=== PATIENT | female | born 1995 | race Caucasian/White ===

== ENCOUNTER 2016-11-04 17:11 | Inpatient (IN) | payer SELFPAY ==
[~2016-11-04] VITALS: Ht 157.5 cm; Wt 55.4 kg
[2016-11-04 19:45] VITALS: BP 104/65; PULSE 68; RESP 16; TEMP 98.2; O2SAT 97
[2016-11-04] MEDS ORDERED: ACETAMINOPHEN 325 MG TAB PO PRN (20:30)
[2016-11-04] MEDS ORDERED: LORazepam 2 MG/ML VIAL IM PRN (20:30)
[2016-11-04] MEDS ORDERED: MAGNESIUM HYDROXIDE SUSP 30 ML CUP PO PRN (20:30)
[2016-11-04] MEDS ORDERED: LORazepam 1 MG TAB PO PRN (20:30)
[2016-11-04] MEDS ORDERED: ALUMINUM/MAGNESIUM/SIMETH 30 ML CUP PO PRN (20:30)
[2016-11-04] MEDS ORDERED: diphenhydrAMINE HCL 50 MG/ML VIAL IM PRN (20:30)
[2016-11-04] MEDS: hydrOXYzine HCL 50 MG TAB PO PRN (20:48)
[2016-11-04] MEDS: REMOVE OLD NICOTINE PATCH T-DERMAL SCH (20:51)
[2016-11-04] MEDS: diphenhydrAMINE HCL 50 MG CAP PO PRN (22:13)
[2016-11-05 05:59] VITALS: BP_SYST 166; BP_SYST 93; BP_DIAS 59; BP_DIAS 87; PULSE 63; PULSE 82; RESP 16; RESP 18; TEMP 97.5; TEMP 98; O2SAT 100; O2SAT 96
[2016-11-05] MEDS: hydrOXYzine HCL 50 MG TAB PO PRN ×2 (06:32→14:01)
[2016-11-05 07:33] LABS: ANION GAP 9 MEQ/L (5-15); BICARBONATE 25.7 MEQ/L (21.0-32.0); BLOOD UREA NITROGEN 18 MG/DL (7-18); CHLORIDE 105 MEQ/L (98-107); GLOMERULAR FILTRATION RATE 107 ML/MIN (>89); POTASSIUM 4.2 MEQ/L (3.5-5.1); SODIUM (NA) 140 MEQ/L (136-145)
[2016-11-05 07:36] LABS: LDL CHOLESTEROL 91 MG/DL (0-99)
[2016-11-05] MEDS: NICOTINE 21 MG/24 HR PATCH T-DERMAL SCH (09:00)
[2016-11-05] MEDS: diphenhydrAMINE HCL 50 MG CAP PO PRN (09:15)
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
--- NOTE | 2016-11-05 14:02 | PD.CONS ---
Provisional Diagnosis Admission Date Nov 04, 2016 at 17:11 [place] I. Other psychotic disorder F 28 History of Present Illness Service Psychiatry Consult Requested By Primary Care Physician Unknown HPI Patient is a 21-year-old white female admitted to Dr. Diallo service under the [employer] act. Dr. Diallo h and p reviewed and agreed with. Patient seen by me in her room with nurse Nori present throughout session patient continues markedly vigilant paranoid guarded depressed. Vague suicidal ideation. Dr. Diallo has signed first opinion petition supporting Carpenter act. I agree. Patient meets criteria for involuntary psychiatric hospitalization under the Carpenter act. Thus I will cosign second opinion petition supporting Carpenter act Past Family Social History Coded Allergies: Dust (Unverified Allergy, Unknown, 11/05/16) Molds and Smuts (Unverified Allergy, Unknown, 11/05/16) Current Medications Medications (Trade) Dose Ordered Sig/Elaine Route Start Time Stop Time Status Last Admin (Atarax) 50 mg Q6H PRN PO 11/04/16 20:30 11/05/16 06:32 (Benadryl) 50 mg Q6H PRN PO 11/04/16 20:30 11/05/16 09:15 (Benadryl Inj) 50 mg Q6H PRN IM 11/04/16 20:30 (Tylenol) 650 mg Q4H PRN PO 11/04/16 20:30 (Milk Of Magnesia Liq) 30 ml DAILY PRN PO 11/04/16 20:30 (Mag-Al Plus Susp Liq) 30 ml Q6H PRN PO 11/04/16 20:30 (Habitrol 21 Mg Patch.24 Hr) 1 patch DAILY T-DERMAL 11/05/16 09:00 Miscellaneous Information 1 HS T-DERMAL 11/04/16 21:00 (risperDAL M-TAB) 0.5 mg Q12HR PO 11/05/16 21:00 Physical Exam Vital Signs Vital Signs Date Time Temp Pulse Resp B/P Pulse Ox O2 Delivery O2 Flow Rate FiO2 11/05/16 05:59 98.0 63 16 93/59 96 Mental Status Examination Speech: Hesitant, Slow Orientation: Person, Place Memory: Unremarkable Thought Process: Logical Thought Content: Unremarkable, Paranoid (mildly) Hallucination Type: None (denies that times appears to be responding to internal stimuli) Attention and Concentration: Easily Distracted Suicidal Ideation: No (though somewhat vague) Previous Suicide Attempts: No Homicidal Ideation: No Previous Homicide Attempts: No Insight: Poor Judgement: Poor Affect: Other (decreased range and intensity) Mood: Sad Motor Activity: Normal gait Assessment & Plan Problem List: (1) Other psychotic disorder not due to a substance or known physiological condition ICD Code: F28 Assessment & Plan Estimated LOS: days Swapnil Reeves MD Nov 05, 2016 14:02
[2016-11-05 16:14] LABS: HEMOGLOBIN A1a 1.1 %; HEMOGLOBIN A1b 0.8 %; HEMOGLOBIN Ao 86.7 %; HEMOGLOBIN F 0.9 %; HEMOGLOBIN LA1C 1.8 %; HEMOGLOBIN P3 3.4 %
[2016-11-05 19:46] VITALS: BP 101/61; PULSE 76; RESP 16; TEMP 98.7
[2016-11-05] MEDS: REMOVE OLD NICOTINE PATCH T-DERMAL SCH (21:00)
[2016-11-06 06:00] VITALS: BP 95/60; PULSE 66; RESP 16; TEMP 98.5
[2016-11-06] MEDS: NICOTINE 21 MG/24 HR PATCH T-DERMAL SCH (08:20)
--- NOTE | 2016-11-06 11:17 | HHI.PYPN ---
Subjective Remarks Patient seen and examined with counselor. Chart reviewed. Case discussed with nursing staff who reports patient is medication compliant but discharge focused. On my examination today, the patient remains oddly related and internally stimulated. She says that she feels annoyed by the other patients on the unit. She says that her sleep is disturbed. She feels quite anxious and tense and says that she has been on Zoloft for this indication in the past. She denies side effects from current medications. No SI or HI voiced. Counselor informs me that the patient was apparently quite fearful of accept towels to bathe from one of the techs, insisting for some reason that the counselor take them from the tech and hand them to the patient instead. Review of Systems ROS Limitations: Psychotic, Poor Historian Other Says that her knee is tapping up and down. No other physical complaints today. Objective Alert: Yes [place]: Person (O x 3) Mood: Anxious Affect: Flat Memory Intact: Comment (Not formally assessed) Hallucinations: Other (Remains internally preoccupied) Delusions: Yes Delusion Type: Paranoid Suicidal: Ideation (No SI) Homicidal: Ideation (No HI) Insight/Judgement Unclear at present. Remarks Patient is indeed tapping her right leg in an anxious fashion. No other abnormal motor movements noted. Thought process tangential at times. Speech somewhat monotone. Labs Labs reviewed. No new labs. Vitals/IOs Vital Signs Date Time Temp Pulse Resp B/P Pulse Ox O2 Delivery O2 Flow Rate FiO2 11/06/16 06:00 98.5 66 16 95/60 11/05/16 05:59 96 Assessment & Plan Problem List: (1) Other psychotic disorder not due to a substance or known physiological condition Assessment & Plan: Rule out comorbid anxiety disorder ICD Code: F28 Assessment & Plan Add Zoloft per patient preference for anxiety. I will plan to titrate Risperdal to target psychosis but we'll continue current dose for now. Continue other medications and care as ordered. Justification for Cont. Inpt. Impairments in reality construction and social function. Risk for decompensation. Discharge Planning Pending psychiatric stabilization Request HC Surrog/Guard Advoc?: Yes Leonides Diallo MD Nov 06, 2016 11:17
[2016-11-06] MEDS: SERTRALINE HCL 50 MG TAB PO SCH (12:04)
[2016-11-06 18:02] VITALS: BP 101/55; PULSE 87; RESP 16; TEMP 98.4; O2SAT 98
[2016-11-06] MEDS: REMOVE OLD NICOTINE PATCH T-DERMAL SCH (20:26)
[2016-11-07 05:18] VITALS: BP 107/56; PULSE 80; RESP 18; TEMP 98.3; O2SAT 98
[2016-11-07] MEDS: SERTRALINE HCL 50 MG TAB PO SCH (08:41)
[2016-11-07] MEDS: NICOTINE 21 MG/24 HR PATCH T-DERMAL SCH (08:41)
--- NOTE | 2016-11-07 11:50 | HHI.PYPN ---
Subjective Remarks Patient seen and examined with counselor. Chart reviewed. Case discussed with nursing staff who reports patient is quite anxious and fearful without clear cause. For example, the patient is reportedly fearful of going into her room. On my examination today, she does indeed seem to enter her room was some trepidation although she cannot articulate why she doesn't like it there. She remains somewhat oddly related and appears a little internally preoccupied. She appears somewhat anxious. She denies any SI or HI. She is agreeable to remaining on the unit over the weekend to allow for some additional medication adjustments but request discharge after that. Denies side effects from medications. Review of Systems ROS Limitations: Poor Historian Other No physical complaints today Objective Alert: Yes [place]: Person, Place (At least) Mood: Anxious Affect: Blunted Memory Intact: Comment (Not formally assessed) Hallucinations: Other (Internally preoccupied) Delusions: Yes Delusion Type: Paranoid Suicidal: Ideation (Denies SI) Homicidal: Ideation (Denies HI) Insight/Judgement Perhaps improving somewhat Remarks No motoric abnormalities noted. Labs Labs reviewed. No new labs. Vitals/IOs Vital Signs Date Time Temp Pulse Resp B/P Pulse Ox O2 Delivery O2 Flow Rate FiO2 11/07/16 05:18 98.3 80 18 107/56 98 Assessment & Plan Problem List: (1) Other psychotic disorder not due to a substance or known physiological condition ICD Code: F28 Assessment & Plan Titrate Risperdal to target psychosis. Continue Zoloft as ordered. Continue other medications and care as ordered. Justification for Cont. Inpt. Risk for decompensation pending psychiatric stabilization. Discharge Planning Monitor over the weekend. Possible discharge after that if the patient is attending to her ADLs and has had some symptomatic improvement in the meantime. Request HC Surrog/Guard Advoc?: Yes Leonides Diallo MD Nov 07, 2016 11:50
[2016-11-07 18:31] VITALS: BP 102/57; PULSE 76; RESP 16; TEMP 98.2; O2SAT 99
[2016-11-07] MEDS: diphenhydrAMINE HCL 50 MG CAP PO PRN (20:54)
[2016-11-08 05:22] VITALS: BP 102/66; PULSE 66; RESP 18; TEMP 98.1; O2SAT 98
[2016-11-08] MEDS: SERTRALINE HCL 50 MG TAB PO SCH (08:20)
[2016-11-08] MEDS: hydrOXYzine HCL 50 MG TAB PO PRN ×2 (11:53→20:34)
--- NOTE | 2016-11-08 16:49 | HHI.PYPN ---
Subjective Remarks Patient was seen and case discussed with nursing. Patient is pleasant and cooperative with exam. She is very guarded and shy. Visibly anxious throughout the interview. Patient is vague and cannot provide details for the reason for her admission. Patient says she solved it with her current doctor. She is compliant with her medications. Denies depressed mood. Denies suicidal ideations thought or plan Objective Alert: Yes [place]: Person, Place (At least) Mood: Anxious Affect: Blunted Memory Intact: Comment (Not formally assessed) Hallucinations: Other (Internally preoccupied) Delusions: Yes Delusion Type: Paranoid Suicidal: Ideation (Denies SI) Homicidal: Ideation (Denies HI) Insight/Judgement Poor Vitals/IOs Vital Signs Date Time Temp Pulse Resp B/P Pulse Ox O2 Delivery O2 Flow Rate FiO2 11/08/16 05:22 98.1 66 18 102/66 98 Intake and Output 11/07/16 11/07/16 11/08/16 08:00 16:00 00:00 Intake Total 480 ml Balance 480 ml Assessment & Plan Problem List: (1) Other psychotic disorder not due to a substance or known physiological condition ICD Code: F28 Assessment & Plan Continue current treatment plan Justification for Cont. Inpt. Patient will decompensate in a less restrictive setting Request HC Surrog/Guard Advoc?: Yes Maxi Leyva DO Nov 08, 2016 16:48
[2016-11-08 19:00] VITALS: BP 117/61; PULSE 75; RESP 18; TEMP 98.5; O2SAT 100
[2016-11-08] MEDS: diphenhydrAMINE HCL 50 MG CAP PO PRN (20:34)
[2016-11-09] MEDS: diphenhydrAMINE HCL 50 MG CAP PO PRN (02:26)
[2016-11-09 06:10] VITALS: BP 106/74; PULSE 76; RESP 18; TEMP 98.1; O2SAT 99
[2016-11-09] MEDS: SERTRALINE HCL 50 MG TAB PO SCH (08:31)
--- NOTE | 2016-11-09 16:29 | HHI.PYPN ---
Subjective Remarks Patient was seen and case discussed with nursing. Patient remains shy and guarded. Per nursing she is whispering to herself. When patient was asked about her behavior she becomes suspicious about why am asking her. Asking about discharge. Says she called her mother and they had a productive conversation. Affect remains blunted. Largely keeping to herself. Denies suicidal ideations intent or plan Objective Alert: Yes [place]: Person, Place (At least) Mood: Anxious Affect: Blunted Memory Intact: Comment (Not formally assessed) Hallucinations: Other (Internally preoccupied) Delusions: Yes Delusion Type: Paranoid Suicidal: Ideation (Denies SI) Homicidal: Ideation (Denies HI) Insight/Judgement Poor Vitals/IOs Vital Signs Date Time Temp Pulse Resp B/P Pulse Ox O2 Delivery O2 Flow Rate FiO2 11/09/16 06:10 98.1 76 18 106/74 99 Assessment & Plan Problem List: (1) Other psychotic disorder not due to a substance or known physiological condition ICD Code: F28 Assessment & Plan Continue current treatment plan Justification for Cont. Inpt. Patient will decompensate in a less restrictive setting Request HC Surrog/Guard Advoc?: Yes Maxi Leyva DO Nov 09, 2016 16:29
[2016-11-09 18:12] VITALS: BP 116/70; PULSE 68; RESP 17; TEMP 87.4; O2SAT 99
[2016-11-10] MEDS: diphenhydrAMINE HCL 50 MG CAP PO PRN ×2 (03:19→09:00)
[2016-11-10] MEDS: SERTRALINE HCL 50 MG TAB PO SCH (09:00)
--- NOTE | 2016-11-10 14:09 | HHI.PYPN ---
Subjective Remarks Patient seen and examined with counselor. Chart reviewed. Case discussed with nursing staff reports patient remains suspicious and has been observed whispering to herself. On my examination today, the patient is extremely anxious and tense, verging on tears at times.. She remains internally stimulated but denies audiovisual hallucinations. She says that she is merely "listening to my conscience." She insists that she is ready for discharge home , by counselor has been unable to contact any responsible democrat at home that might accept her. Denies side effects from medications. Review of Systems Other No physical complaints today Objective Alert: Yes [place]: Person, Place Mood: Anxious (marked) Affect: Restricted Memory Intact: Comment (Not formally assessed) Hallucinations: Other (remains internally stimulated) Delusions: Yes Delusion Type: Paranoid Suicidal: Ideation (no SI) Homicidal: Ideation (no HI) Insight/Judgement Poor Remarks No abnormal motor movements noted. Thought process linear. Speech within normal limits for rate, tone and volume. Labs Labs reviewed. No new labs. Vitals/IOs Vital Signs Date Time Temp Pulse Resp B/P Pulse Ox O2 Delivery O2 Flow Rate FiO2 11/09/16 18:12 87.4 68 17 116/70 99 Assessment & Plan Problem List: (1) Other psychotic disorder not due to a substance or known physiological condition ICD Code: F28 Assessment & Plan Titrate Risperdal to target ongoing psychotic symptoms. Continue Zoloft as ordered. Continue other medications and care as ordered. Justification for Cont. Inpt. Risk for decompensation. Medication changes in process. Discharge Planning Counselor to reach out to family. If family is in place to monitor patient to ensure safety in the community, we could consider discharge in the next day or two. Request HC Surrog/Guard Advoc?: Yes Leonides Diallo MD Nov 10, 2016 14:09
[2016-11-10 18:34] VITALS: BP 99/61; PULSE 75; RESP 18; TEMP 99; O2SAT 96
[2016-11-10] MEDS: hydrOXYzine HCL 50 MG TAB PO PRN (20:06)
[2016-11-11 05:33] VITALS: BP 105/57; PULSE 78; RESP 16; TEMP 97.6; O2SAT 97
[2016-11-11] MEDS: SERTRALINE HCL 50 MG TAB PO SCH (09:00)
[2016-11-11] MEDS ORDERED: ZOLO50TA PO (09:19)
[2016-11-11] MEDS ORDERED: RISP1 PO (09:19)
[2016-11-11] MEDS ORDERED: HYDR50TA94 PO ×2 (09:19→11:15)
[2016-11-11] MEDS ORDERED: BACI500O2 TOPICAL (09:19)
--- NOTE | 2016-11-11 09:20 | HHI.DS ---
Psychiatry Discharge Summary Inpatient Psychiatric care?: Yes Advance Directive: No Reason Not Provided: declined Mental Health AdvanceDirective: No Health Care Proxy: No Admission Admission Date Nov 04, 2016 at 17:11 Admission Diagnosis: (1) Other psychotic disorder not due to a substance or known physiological condition ICD Code: F28 Brief History Ms. Flood is a 21-year-old female with a reported history of anxiety, depression and bipolar disorder who presents in transfer from [facility] under a Carpenter Act. In reviewing the outside records, the patient apparently presented voluntarily to [facility] requesting a refill of her psychotropic medications. She was placed under a Carpenter Act and sent to [place]. Reviewing the electronic medical record here, I note this is the patient's first visit to [place]. Patient seen and examined with counselor. Chart reviewed. Case discussed with nursing staff. On my examination today, the patient presents as guarded with an intense stare. She describes her mood as irritable and says that she struggles with being quick to anger. She appears somewhat internally preoccupied and is oddly related. She denies any suicidal or homicidal ideation but it is unclear that she is reliable to contract for safety. She says that her sleep and appetite has been fair. No hypomanic or manic symptoms. No depressive symptoms. The remainder of the psychiatric ROS is negative. The counselor internet marketer has obtained collateral from patient's mother to the effect that the patient had onset of her illness around age 19 and has significant family history of bipolar disorder in her mother and schizophrenia in her father. Mother also reportedly notes that the patient has had significant functional impairment lately and has required assistance and prompting with ADLs such as bathing. Tobacco Use In Past 30 Days: 5 or More Cigarettes/Day Alcohol Use: Never Hospital Course Patient was admitted to a locked, inpatient psychiatric unit. Appropriate precautions were in place throughout patient's hospital stay. Patient was seen and examined daily on the unit by psychiatry and also visited by counselor. Medications were adjusted. Patient tolerated medications well without side effects. Patient had improvement in her presenting psychiatric symptomatology during the course of her hospital stay. There was no evidence of any suicidal or homicidal behavior on the inpatient psychiatric unit. Patient remained in generally good behavioral control and was medication compliant. On the day of discharge: Patient seen and examined in treatment team. Chart reviewed. Case discussed with counselor, occupational therapist and nurse. On my examination today, the patient remains fairly anxious. However, counselor has spoken with patient's mother and it appears that the patient has a fairly anxious baseline temperament. The patient's affect seems considerably more reactive today and she seems much less internally preoccupied. She denies any AVH. She denies any suicidal or homicidal ideation. Mood is fair. She denies side effects from medications. She has no somatic complaints. She requests discharge from the inpatient psychiatric unit today. Weighing the acute, chronic, and protective factors and based on the available evidence, I coating engineer to a reasonable degree of medical certainty that the patient is at low imminent risk of harm to self or others or mental illness as defined under the Carpenter act and her level of function appears to be adequate for outpatient care particularly since her family will be providing her with additional support. I will therefore arrange to discharge the patient home today in stable condition with psychiatric follow- up as arranged by counselor. Patient is also to follow-up with primary care. I counseled the patient regarding warning signs for need to return to the psychiatric emergency room as part of a general safety plan. Results Blood Pressure 105 / 57 Vital Signs Date Time Temp Pulse Resp B/P Pulse Ox O2 Delivery O2 Flow Rate FiO2 11/11/16 05:33 97.6 78 16 105/57 97 Item Value Date Time Sodium Level 140 MEQ/L 11/05/16 0633 Potassium Level 4.2 MEQ/L 11/05/16 0633 Chloride Level 105 MEQ/L 11/05/16 0633 Carbon Dioxide Level 25.7 MEQ/L 11/05/16 0633 Blood Urea Nitrogen 18 MG/DL 11/05/16 0633 Creatinine 0.69 MG/DL 11/05/16 0633 Hemoglobin A1c 4.9 % 11/05/16 0633 Summary of Procedures None done Imaging None done Pending results at discharge: No Medications # of Antipsychotic meds at D/C: 1 Approp Antipsych med options 1 - Minimum of three failed multiple trials of monotherapy. 2 - Documented plan to taper to monotherapy due to previous use of multiple meds OR cross-taper in progress at D/C. 3 - Documentation of augmentation of Clozapine. 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 GAF on discharge is 55. Mental Status Exam at Disch Patient is casually dressed. She is well groomed. She is maintaining basic hygiene. She is awake and alert and oriented 3. No abnormal motor movements noted. Speech is within normal limits for rate, tone and volume. Language and fund of knowledge seemed average for age. Mood is fair and affect is anxious. Thought process fairly linear. No loosening of associations. No megha delusional material. Denies audiovisual hallucinations. Denies suicidal or homicidal ideation. Insight and judgment are fair at best. Pt Condition on Discharge: Stable Discharge Disposition: Discharge Home Discharge Instructions Diet Instructions: As Tolerated, No Restrictions Activities you can perform: Weight Bearing as Oksana Scheduled Appointment: as per counselor's notes New Medications: Bacitracin (Bacitracin) 500 Unit/Gm Oint 1 APPLIC TOPICAL BID Apply to right 5th digit. Health #1 TUBE Hydroxyzine HCl (Hydroxyzine HCl) 50 Mg Tab 50 MG PO q6h PRN ANXIETY #30 Ref 1 TAB Risperidone (Risperdal) 1 Mg Tab 1.5 MG PO BID Mental Health Days 15 Ref 1 TAB Sertraline (Zoloft) 50 Mg Tab 50 MG PO DAILY Mental Health Days 15 Ref 1 TAB Discharge Time <= 30 minutes Discharge/Advance Care Plan Health Problems: (1) Other psychotic disorder not due to a substance or known physiological condition Goals to promote your health * To prevent worsening of your condition and complications * To maintain your health at the optimal level Directions to meet your goals Take your medications as prescribed Follow your dietary instruction Follow activity as directed Keep your appointments as scheduled Take your immunizations and boosters as scheduled If your symptoms worsen call your PCP, if no PCP go to Urgent Care Center or Emergency Room For 24 questions related to your inpatient stay or results of tests pending at discharge, please contact Dr. Leonides Diallo at Smoking is Dangerous to Your Health. Avoid second hand smoking Leonides Diallo MD Nov 11, 2016 09:20
[2016-11-11] MEDS ORDERED: BACI500O61 TOPICAL (11:15)
== END 2016-11-11 11:46 | disposition home or self-care (01) | DRG 885 ==
LOC: H270 17:11
PROVIDERS: ADMIT Psychiatry & Neurology Psychiatry; ATTEND Psychiatry & Neurology Psychiatry
DX: F28 Other psychotic disorder not due to a substance or known physiological condition (principal); F41.8 Other specified anxiety disorders; Z72.0 Tobacco use
CPT/HCPCS: 80048; 80061; 83036; Q0163